=== PATIENT | female | born 2000 | race Two or more races ===

== ENCOUNTER 2024-05-25 20:04 | Emergency (ER) | payer SELFPAY ==
[~2024-05-25] VITALS: Ht 160 cm; Wt 69.4 kg
[2024-05-25] MEDS ORDERED: IBUPROFEN 400 MG TABLET ONE (21:09)
[2024-05-25] MEDS ORDERED: ACETAMINOPHEN ES 500 MG TABLET ONE (21:09)
[2024-05-25] MEDS ORDERED: CYCLOBENZAPRINE 10 MG TABLET ONE (21:09)
[2024-05-25] MEDS: CYCLOBENZAPRINE 10 MG TABLET PO ONE (21:13)
[2024-05-25] MEDS: ACETAMINOPHEN ES 500 MG TABLET PO ONE (21:13)
[2024-05-25] MEDS: IBUPROFEN 400 MG TABLET PO ONE (21:13)
[2024-05-25] MEDS ORDERED: CYCL5TAB PO (22:50)
[2024-05-25] MEDS ORDERED: IBUP-1955 PO (22:50)
[2024-05-25] MEDS ORDERED: ACET-2605 PO (22:50)
[2024-05-25 23:17] VITALS: BP 112/64; TEMP 98.3; O2SAT 100
== END 2024-05-25 23:18 | disposition home or self-care (01) ==
LOC: ER 20:10
DX: S93.402A Sprain of unspecified ligament of left ankle, initial encounter (principal); M25.562 Pain in left knee; M25.512 Pain in left shoulder; M25.522 Pain in left elbow; M54.6 Pain in thoracic spine; Z60.2 Problems related to living alone; W01.0XXA Fall on same level from slipping, tripping and stumbling without subsequent striking against object, initial encounter; Y93.89 Activity, other specified; Y92.89 Other specified places as the place of occurrence of the external cause; Y99.8 Other external cause status
CPT/HCPCS: 72070-TC; 73080-TC; 73564-TC; 73610-TC